=== PATIENT | female | born 1995 | race Caucasian/White ===

== ENCOUNTER 2016-05-12 19:30 | Emergency (ER) | payer SELFPAY ==
[2016-05-12] MEDS ORDERED: HYDROCODONE/ACETAMINOPHEN 5-325 MG TABLET PO ONE (22:51)
--- NOTE | 2016-05-12 22:54 | ER Document Report ---
ED Medical Screen (RME) - General Chief Complaint: Lower Abdominal Pain Stated Complaint: ABDOMINAL PAIN Mode of Arrival: Ambulatory Information source: Patient Notes: Patient is a 21-year-old female who presents to the ER today for 1 week of worsening abdominal, vaginal, anal pain only with intercourse. Patient states that it starts within 2 minutes of the start of intercourse. She denies any vaginal bleeding, vaginal discharge, fevers, chills. TRAVEL OUTSIDE OF THE [place] IN LAST 30 DAYS: No - Related Data Allergies/Adverse Reactions: No Known Allergies Allergy (Verified 05/12/16 22:51) Past Medical History - General Information source: Patient - Immunizations Immunizations up to date: Yes Hx Diphtheria, Pertussis, Tetanus Vaccination: Yes Review of Systems - Review of Systems Female Genitourinary: See HPI Physical Exam - Vital signs Vitals: Temp Pulse BP Pulse Ox 98.2 F 63 111/62 99 05/12/16 20:27 05/12/16 20:27 05/12/16 20:27 05/12/16 20:27 - Notes Notes: PHYSICAL EXAMINATION: GENERAL: Uncomfortable, but in no acute distress. LUNGS: CTAB and equal. No wheezes rales or rhonchi. HEART: Regular rate and rhythm without murmurs ABDOMEN: Soft, periumbilical, left lower quadrant, suprapubic tenderness. No guarding, no rebound Course - Vital Signs Vital signs: Temp Pulse Resp BP Pulse Ox 98.2 F 63 111/62 99 05/12/16 20:27 05/12/16 20:27 05/12/16 20:27 05/12/16 20:27
[2016-05-12 23:07] LABS: ABSOLUTE BASOPHILS # (AUTO) 0.1 10^3/uL (0.0-0.2); ABSOLUTE LYMPHOCYTES (AUTO) 2.5 10^3/uL (0.5-4.7); ABSOLUTE MONOCYTES (AUTO) 0.4 10^3/uL (0.1-1.4); ABSOLUTE NEUT (AUTO) 5.4 10^3/uL (1.7-8.2); BASOPHILS % (AUTO) 0.6 % (0-2); EOSINOPHILS % (AUTO) 0.6 % (0-6); HEMATOCRIT 39.8 % (36.0-47.0); HEMOGLOBIN 13.5 g/dL (12.0-15.5); HGB HCT DIFFERENCE 0.7; LYMPHOCYTES % (AUTO) 29.7 % (13-45); MEAN CORPUSCULAR HEMOGLOBIN 28.8 pg (27.0-33.4); MEAN CORPUSCULAR VOLUME 85 fl (80-97); MONOCYTES % (AUTO) 5.3 % (3-13); RED CELL DISTRIBUTION WIDTH 12.4 % (11.5-14.0); SEGMENTED NEUTROPHILS % (AUTO) 63.8 % (42-78); WHITE BLOOD COUNT 8.5 10^3/uL (4.0-10.5)
[2016-05-12 23:26] LABS: ALANINE AMINOTRANSFERASE 31 U/L (9-52); ALBUMIN 4.8 g/dL (3.5-5.0); ALKALINE PHOSPHATASE 76 U/L (38-126); ANION GAP 10 (5-19); ASPARTATE AMINO TRANSFERASE 20 U/L (14-36); BILIRUBIN,TOTAL 0.4 mg/dL (0.2-1.3); BLOOD UREA NITROGEN 10 mg/dL (7-20); CALCIUM 9.6 mg/dL (8.4-10.2); CARBON DIOXIDE 27 mmol/L (22-30); CHLORIDE 105 mmol/L (98-107); CREATININE RESULT 0.55 mg/dL (0.52-1.25); GLUCOSE 84 mg/dL (75-110); LIPASE 78.6 U/L (23-300); POTASSIUM 4.4 mmol/L (3.6-5.0); SODIUM 141.7 mmol/L (137-145); TOTAL PROTEIN 7.4 g/dL (6.3-8.2)
[2016-05-13 00:24] LABS: APPEARANCE,URINE CLEAR; BILIRUBIN,URINE NEGATIVE (NEGATIVE); GLUCOSE, URINE NEGATIVE (NEGATIVE); KETONES,URINE NEGATIVE (NEGATIVE); LEUKOCYTE ESTERASE,URINE NEGATIVE (NEGATIVE); NITRITE,URINE NEGATIVE (NEGATIVE); PROTEIN,URINE NEGATIVE (NEGATIVE); URINE SPECIFIC GRAVITY 1.013; UROBILINOGEN,URINE NEGATIVE mg/dL (<2.0)
[2016-05-13] MEDS ORDERED: HYDROCODONE/ACETAMINOPHEN 5-325 MG 6 TAB/DSPK PO PRN (03:12)
--- NOTE | 2016-05-13 03:12 | ER Document Report ---
ED GI/ - General Chief Complaint: Lower Abdominal Pain Stated Complaint: ABDOMINAL PAIN Mode of Arrival: Ambulatory Information source: Patient Notes: Patient is a 21-year-old female who presents to the ER today for 1 week of worsening abdominal, vaginal, anal pain only with intercourse. Patient states that it starts within 2 minutes of the start of intercourse. She denies any vaginal bleeding, vaginal discharge, fevers, chills. TRAVEL OUTSIDE OF THE [place] IN LAST 30 DAYS: No - Related Data Allergies/Adverse Reactions: No Known Allergies Allergy (Verified 05/12/16 22:51) Past Medical History - General Information source: Patient - Social History Smoking Status: Never Smoker Family History: None Patient has suicidal ideation: No Patient has homicidal ideation: No - Immunizations Immunizations up to date: Yes Hx Diphtheria, Pertussis, Tetanus Vaccination: Yes Review of Systems - Review of Systems Constitutional: No symptoms reported EENT: No symptoms reported Cardiovascular: No symptoms reported Respiratory: No symptoms reported Gastrointestinal: See HPI Genitourinary: No symptoms reported Female Genitourinary: See HPI Musculoskeletal: No symptoms reported Skin: No symptoms reported Hematologic/Lymphatic: No symptoms reported Neurological/Psychological: No symptoms reported Physical Exam - Vital signs Vitals: Temp Pulse BP Pulse Ox 98.2 F 63 111/62 99 05/12/16 20:27 05/12/16 20:27 05/12/16 20:27 05/12/16 20:27 - Notes Notes: PHYSICAL EXAMINATION: GENERAL: Appears uncomfortable, but in no acute distress. HEAD: Atraumatic, normocephalic. EYES: Pupils equal round and reactive to light, extraocular movements intact, sclera anicteric, conjunctiva are normal. NECK: Normal range of motion, supple without lymphadenopathy LUNGS: CTAB and equal. No wheezes rales or rhonchi. HEART: Regular rate and rhythm without murmurs ABDOMEN: Soft, periumbilical, suprapubic, left lower quadrant tenderness. No guarding, no rebound BACK: no vertebral tenderness, normal ROM GI/: no CVA tenderness EXTREMITIES: Normal range of motion, no pitting edema. No cyanosis. NEUROLOGICAL: Cranial nerves grossly intact. Normal sensory/motor exams. PSYCH: Normal mood, normal affect. SKIN: Warm, Dry, normal turgor, no rashes or lesions noted Course - Re-evaluation Re-evalutation: 05/13/16 03:07 Lab work is unremarkable today with a normal white blood cell count and negative test. Ultrasound transvaginal reports good blood flow to bilateral ovaries and no evidence of torsion, there are multiple cysts in both ovaries, no evidence for endometriosis or other abnormality. - Vital Signs Vital signs: Temp Pulse Resp BP Pulse Ox 98.2 F 63 111/62 99 05/12/16 20:27 05/12/16 20:27 05/12/16 20:27 05/12/16 20:27 - Laboratory Result Diagrams: 05/12/16 22:50 05/12/16 22:50 Laboratory results interpreted by me: 05/13/16 00:08 Urine Blood MODERATE H Discharge - Discharge Clinical Impression: Lower abdominal pain Ovarian cyst Qualifiers: Laterality: bilateral Qualified Code(s): N83.201 - Unspecified ovarian cyst, right side; N83.202 - Unspecified ovarian cyst, left side Condition: Stable Disposition: HOME, SELF-CARE Instructions: Oral Narcotic Medication ([facility]), Ovarian Cyst ([facility]) Additional Instructions: Return immediately for any new or worsening symptoms. Follow up with primary care provider, call tomorrow to make followup appointment. Prescriptions: Ibuprofen [Motrin 800 mg Tablet] 800 mg PO Q8H PRN #30 tab PRN Reason: Referrals: [facility] [Provider Group] - Follow up as needed
[2016-05-13 03:27] VITALS: BP 115/59
== END 2016-05-13 03:26 | disposition home or self-care (01) ==
LOC: ER 19:30
DX: N83.201 Unspecified ovarian cyst, right side (principal); N83.202 Unspecified ovarian cyst, left side; R10.30 Lower abdominal pain, unspecified
CPT/HCPCS: 36415; 76830; 80053; 81001; 83690; 84703; 85025; 93976; 99284

== ENCOUNTER 2016-07-09 07:53 | Emergency (ER) | payer SELFPAY ==
--- NOTE | 2016-07-09 09:09 | ER Document Report ---
ED Extremity Problem, Upper - General Chief Complaint: Shoulder Pain Stated Complaint: ARM PAIN Mode of Arrival: Ambulatory Information source: Patient Notes: 21 y/o F presents to ED c/o right shoulder pain. Pt reports pain began after she rolled in her bed this morning and states felt and heard her shoulder "pop" . Reports pain is worse with external rotation and abduction of shoulder. Denies numbness, tingling, color changes, swelling, chest pain, or sob. Reports has had pain to bilateral shoulders in the past but not as intense as todays episode. TRAVEL OUTSIDE OF THE [place] IN LAST 30 DAYS: No - HPI Patient complains to provider of: Right, Shoulder Onset: This morning Recent injury: Possibly Where: Home, Indoors Quality of pain: Achy Severity of pain: Mild Pain Level: 2 Associated symptoms: None Exacerbated by: Movement Relieved by: Positioning Similar symptoms previously: Yes Recently seen / treated by doctor: No - Related Data Allergies/Adverse Reactions: No Known Allergies Allergy (Verified 07/09/16 07:57) Past Medical History - General Information source: Patient - Social History Smoking Status: Never Smoker Chew tobacco use (# tins/day): No Frequency of alcohol use: None Drug Abuse: None Lives with: Family Family History: Reviewed & Not Pertinent Patient has suicidal ideation: No Patient has homicidal ideation: No - Medical History Medical History: Negative Renal/ Medical History: Denies: Hx Peritoneal Dialysis Surgical Hx: Negative - Immunizations Immunizations up to date: Yes Hx Diphtheria, Pertussis, Tetanus Vaccination: Yes Review of Systems - Review of Systems Constitutional: No symptoms reported EENT: No symptoms reported Cardiovascular: No symptoms reported Respiratory: No symptoms reported Gastrointestinal: No symptoms reported Genitourinary: No symptoms reported Female Genitourinary: No symptoms reported Musculoskeletal: See HPI Skin: No symptoms reported Hematologic/Lymphatic: No symptoms reported Neurological/Psychological: No symptoms reported -: Yes All other systems reviewed and negative Physical Exam - Vital signs Vitals: Temp Pulse Resp BP Pulse Ox 98.6 F 77 16 122/50 L 97 07/09/16 07:59 07/09/16 07:59 07/09/16 07:59 07/09/16 07:59 07/09/16 07:59 Interpretation: Normal - General General appearance: Appears well, Alert In distress: None - HEENT Head: Normocephalic, Atraumatic Eyes: Normal Pupils: PERRL - Respiratory Respiratory status: No respiratory distress Chest status: Nontender Breath sounds: Normal Chest palpation: Normal - Cardiovascular Rhythm: Regular Heart sounds: Normal auscultation Murmur: No Pulses: Normal: Radial Normal capillary refill: Yes - Abdominal Inspection: Normal Distension: No distension Bowel sounds: Normal Tenderness: Nontender Organomegaly: No organomegaly - Back Back: Normal, Nontender - Extremities General upper extremity: Normal inspection, Nontender, Normal color, Normal ROM , Normal strength, Normal temperature. No: Tender, Edema General lower extremity: Normal inspection, Nontender, Normal color, Normal ROM , Normal strength, Normal temperature, Normal weight bearing. No: Tender, Edema Shoulder: Tender - Patient complains of diffuse tenderness with palpation to right shoulder. No swelling, erythema, warmth, bruising, instability, deformity , or crepitus. Patient has full range of motion but complains of pain with external rotation and abduction. Distal neurovascular function intact., Limited ROM - Active due to pain. No: Deformity, Instability Arm: Normal, Nontender - Neurological Neuro grossly intact: Yes Cognition: Normal Orientation: AAOx4 Ángel Coma Scale Eye Opening: Spontaneous Ángel Coma Scale Verbal: Oriented Ángel Coma Scale Motor: Obeys Commands [place] Coma Scale Total: 15 Speech: Normal Motor strength normal: LUE, RUE, LLE, RLE Sensory: Normal - Psychological Associated symptoms: Normal affect, Normal mood - Skin Skin Temperature: Warm Skin Moisture: Dry Skin Color: Normal Course - Re-evaluation Re-evalutation: 07/09/16 09:51 Patient hemodynamically stable, in no distress, afebrile. X-ray of right shoulder unremarkable. Patient declined sling. No suggestion of emergent injury or inflammatory, infectious, or vascular etiology to symptoms. Patient appears stable for discharge and agrees with home care, follow-up with PCP, and ED return precautions. - Vital Signs Vital signs: Temp Pulse Resp BP Pulse Ox 98.1 F 75 16 120/45 L 100 07/09/16 10:14 07/09/16 10:14 07/09/16 10:14 07/09/16 10:14 07/09/16 10:14 - Diagnostic Test Radiology reviewed: Image reviewed, Reports reviewed Discharge - Discharge Clinical Impression: Right shoulder pain Qualifiers: Chronicity: acute Qualified Code(s): M25.511 - Pain in right shoulder Right shoulder strain Qualifiers: Encounter type: initial encounter Qualified Code(s): S46.911A - Strain of unspecified muscle, fascia and tendon at shoulder and upper arm level, right arm , initial encounter Condition: Stable Disposition: HOME, SELF-CARE Instructions: Exercise Program for the Shoulder ([facility]), Shoulder Injury ([facility]), Warm Packs ([facility]), Ice Packs ([facility]), Anti-Inflammatory Medication ([facility]) Additional Instructions: Follow-up with your primary care provider this week. Return to the emergency department for any worsening symptoms or concerns. Prescriptions: Naproxen [Naprosyn 375 Mg Tablet] 375 mg PO BIDP PRN #10 tablet PRN Reason: Referrals: RENNY MINAYA MD [Primary Care Provider] - Follow up tomorrow
[2016-07-09] MEDS ORDERED: IBUPROFEN 600 MG TABLET PO ONE (09:10)
[2016-07-09 10:17] VITALS: BP 120/45
== END 2016-07-09 10:17 | disposition home or self-care (01) ==
LOC: ER 07:53
DX: S46.911A Strain of unspecified muscle, fascia and tendon at shoulder and upper arm level, right arm, initial encounter (principal); M25.511 Pain in right shoulder; X58.XXXA Exposure to other specified factors, initial encounter; Y93.89 Activity, other specified; Y92.003 Bedroom of unspecified non-institutional (private) residence as the place of occurrence of the external cause
CPT/HCPCS: 99283

== ENCOUNTER 2016-08-14 15:14 | Emergency (ER) | payer SELFPAY ==
[2016-08-14] MEDS ORDERED: IBUPROFEN 600 MG TABLET PO ONE (15:51)
--- NOTE | 2016-08-14 15:51 | ER Document Report ---
HPI - HPI Patient complains to provider of: foreign body in the vagina Pain Level: 3 Context: Patient is a 21 FEMALE presents emergency Department complaining of vaginal discomfort. Patient states that on Wednesday she put in a tampon because she's had light spotting after her IUD was placed about 6 weeks ago. Patient states that she thought she took the tampon out but then last night was having abdominal cramps which are consistent since she's had her IUD placed and she went to check to make sure her strings were intact and she felt a string from the tampon which she then removed. Patient states that her abdominal cramps are consistent with her IUD did not change since she's been taking Motrin was which they resolve. She states that she now has vaginal discomfort after removal of the tampon. Patient states that she feels that she's been having low -grade fevers at home. So she was told by her mother to come get evaluated. She denies any other medical problems. Currently sexually active with her boyfriend not using protection. - REPRODUCTIVE Reproductive: DENIES: : - DERM Skin Color: Normal Past Medical History - Social History Smoking Status: Never Smoker Family History: Reviewed & Not Pertinent Patient has suicidal ideation: No Patient has homicidal ideation: No Renal/ Medical History: Denies: Hx Peritoneal Dialysis - Immunizations Immunizations up to date: Yes Hx Diphtheria, Pertussis, Tetanus Vaccination: Yes Vertical Provider Document - INFECTION CONTROL TRAVEL OUTSIDE OF THE [place] IN LAST 30 DAYS: No - RESPIRATORY Respiratory: Breath Sounds Normal, No Respiratory Distress, Chest Non-Tender. negative: Rales, Rhonchi, Wheezing O2 Sat by Pulse Oximetry: 98 - CARDIOVASCULAR Cardiovascular: Regular Rate, Regular Rhythm, No Murmur - GI/ABDOMEN Gastrointestinal: Abdomen Soft, Abdomen Non-Tender, No Organomegaly, Normal Bowel Sounds - REPRODUCTIVE Notes: FEMALE : Normal external exam. No evidence of lesions, lacerations, bruising or vesicles. Speculum exam normal cervix closed. Strength visualized and intact. No evidence of vaginal discharge with odor. No evidence of lesions. Minimal vaginal bleeding. Bimanual exam normal no cervical motion tenderness. No adnexal mass or adnexal tenderness. - NEURO Level of Consciousness: Awake, Alert, Appropriate Motor/Sensory: No Motor Deficit, No Sensory Deficit - DERM Integumentary: Warm, Dry, No Rash Course - Re-evaluation Re-evalutation: 08/14/16 20:48 Patient's presentation today is not consistent with any concern for toxic shock syndrome. Patient is hemodynamically stable, no acute distress and afebrile. No visible lesions or skin breakdown visible during pelvic exam. We'll initiate patient on Flagyl after discussion with supervising physician Dr. Cj Sow. Otherwise follow-up with [facility] as scheduled - Vital Signs Vital signs: Temp Pulse Resp BP Pulse Ox 98.8 F 85 16 116/75 98 08/14/16 15:20 08/14/16 15:20 08/14/16 15:20 08/14/16 15:20 08/14/16 15:20 Discharge - Discharge Clinical Impression: Vaginal pain Condition: Good Disposition: HOME, SELF-CARE Instructions: Metronidazole ([facility]) Prescriptions: Metronidazole [Flagyl Er] 750 mg PO DAILY #7 tablet.sa Referrals: SONG STEINBERG MD [ACTIVE STAFF] - Follow up as needed ()
[2016-08-14 17:16] VITALS: BP 120/68
[2016-08-14 17:57] LABS: CHLAM PCR NOT DETECTED (NOT DETECT)
== END 2016-08-14 17:14 | disposition home or self-care (01) ==
LOC: ER 15:14
DX: R10.2 Pelvic and perineal pain (principal); Z97.5 Presence of (intrauterine) contraceptive device
CPT/HCPCS: 87210; 87491; 87591; 99283

== ENCOUNTER 2017-05-19 12:05 | Emergency (ER) | payer SELFPAY ==
--- NOTE | 2017-05-19 13:28 | ER Document Report ---
ED Medical Screen (RME) - General Chief Complaint: Abdominal Pain Stated Complaint: ABDOMINAL PAIN Time Seen by Provider: 05/19/17 13:22 Mode of Arrival: Ambulatory Information source: Patient Notes: Pt has had RLQ abd pain that started 7am this morning, started around her belly button, has moved to RLQ. N/V and one episode of diarrhea. felt like she had fever. no abd vag d/c or dysuria. TRAVEL OUTSIDE OF THE [place] IN LAST 30 DAYS: No - Related Data Allergies/Adverse Reactions: No Known Allergies Allergy (Verified 08/14/16 15:19) Home Medications: Current Home Medications Norethindrone-E.estradiol-Iron [Lo Loestrin Fe 1-10 Tablet] 1 each PO DAILY 02/24 [History] Past Medical History - General Information source: Patient Renal/ Medical History: Denies: Hx Peritoneal Dialysis - Immunizations Immunizations up to date: Yes Hx Diphtheria, Pertussis, Tetanus Vaccination: Yes Review of Systems - Review of Systems Gastrointestinal: See HPI Physical Exam - Vital signs Vitals: Temp Pulse Resp BP Pulse Ox 98.6 F 91 16 127/76 H 96 05/19/17 12:24 05/19/17 12:24 05/19/17 12:24 05/19/17 12:24 05/19/17 12:24 - Notes Notes: General: crying, uncomfortable but NAD ABD: tender to RLQ only, no rebound or guarding, soft Course - Vital Signs Vital signs: Temp Pulse Resp BP Pulse Ox 98.6 F 91 16 127/76 H 96 05/19/17 12:24 05/19/17 12:24 05/19/17 12:24 05/19/17 12:24 05/19/17 12:24
[2017-05-19 14:13] LABS: ABSOLUTE LYMPHOCYTES (AUTO) 2.5 10^3/uL (0.5-4.7); ABSOLUTE MONOCYTES (AUTO) 0.4 10^3/uL (0.1-1.4); ABSOLUTE NEUT (AUTO) 3.9 10^3/uL (1.7-8.2); BASOPHILS % (AUTO) 0.6 % (0-2); EOSINOPHILS % (AUTO) 0.4 % (0-6); HEMATOCRIT 40.7 % (36.0-47.0); HEMOGLOBIN 13.9 g/dL (12.0-15.5); LYMPHOCYTES % (AUTO) 35.9 % (13-45); MEAN CORPUSCULAR HEMOGLOBIN 27.9 pg (27.0-33.4); MEAN CORPUSCULAR VOLUME 82 fl (80-97); MONOCYTES % (AUTO) 6.1 % (3-13); PLATELET COUNT 314 10^3/uL (150-450); RED BLOOD COUNT 4.96 10^6/uL (3.72-5.28); TOTAL CELLS COUNTED % (AUTO) 100 %; WHITE BLOOD COUNT 6.9 10^3/uL (4.0-10.5)
[2017-05-19 14:26] LABS: AMORPHOUS SEDIMENT,URINE 1+ /HPF; APPEARANCE,URINE TURBID; BILIRUBIN,URINE NEGATIVE (NEGATIVE); COLOR,URINE YELLOW; GLUCOSE, URINE NEGATIVE (NEGATIVE); KETONES,URINE NEGATIVE (NEGATIVE); LEUKOCYTE ESTERASE,URINE TRACE (NEGATIVE); NITRITE,URINE POSITIVE (NEGATIVE); PROTEIN,URINE NEGATIVE (NEGATIVE); UROBILINOGEN,URINE NEGATIVE mg/dL (<2.0)
[2017-05-19 14:31] LABS: ALANINE AMINOTRANSFERASE 22 U/L (9-52); ALBUMIN 4.7 g/dL (3.5-5.0); ALKALINE PHOSPHATASE 78 U/L (38-126); ANION GAP 12 (5-19); ASPARTATE AMINO TRANSFERASE 17 U/L (14-36); BILIRUBIN,DIRECT 0.2 mg/dL (0.0-0.4); BILIRUBIN,TOTAL 0.4 mg/dL (0.2-1.3); BLOOD UREA NITROGEN 11 mg/dL (7-20); CALCIUM 10.1 mg/dL (8.4-10.2); CARBON DIOXIDE 26 mmol/L (22-30); CHLORIDE 102 mmol/L (98-107); GLUCOSE 81 mg/dL (75-110); LIPASE 69.2 U/L (23-300); POTASSIUM 4.7 mmol/L (3.6-5.0); SODIUM 140.3 mmol/L (137-145); TOTAL PROTEIN 7.6 g/dL (6.3-8.2)
--- NOTE | 2017-05-19 15:15 | RADIOLOGY REPORT (SQ) ---
EXAM DESCRIPTION: CT ABD/PELVIS WITH IV ONLY COMPLETED DATE/TIME: 05/19/2017 2:54 pm REASON FOR STUDY: rlq pain/ n/v COMPARISON: None. TECHNIQUE: CT scan of the abdomen and pelvis performed using helical scanning technique with dynamic intravenous contrast injection. No oral contrast. Images reviewed with lung, soft tissue, and bone windows. Reconstructed coronal and sagittal MPR images reviewed. Delayed images for evaluation of the urinary system also acquired. All images stored on PACS. All CT scanners at this facility use dose modulation, iterative reconstruction, and/or weight based d osing when appropriate to reduce radiation dose to as low as reasonably achievable (ALARA). [facility]: Dose Right [facility]: CareDose [facility]: Dose Right [facility]: Teradose 4D [facility]: iFlipd CONTRAST TYPE AND DOSE: contrast/concentration: Isovue 370.00 mg/ml; Total Contrast Delivered: 79.0 ml; Total Saline Delivered: 68.1 ml RENAL FUNCTION: None required. The patient is less than 50 years old. RADIATION DOSE: CT Rad equipment meets quality standard of care and radiation dose reduction techniq ues were employed. CTDIvol: 8.2 - 11.1 mGy. DLP: 1047 mGy-cm.. LIMITATIONS: None. FINDINGS: LOWER CHEST: No significant findings. No nodules or infiltrates. LIVER: Normal size. No masses. No dilated ducts. SPLEEN: Normal size. No focal lesions. PANCREAS: No masses. No significant calcifications. No adjacent inflammation or peripancreatic fluid collections. Pancreatic duct not dilated. GALLBLADDER: No identified stones by CT criteria. No inflammatory changes to suggest cholecystitis. ADRENAL GLANDS: No significant masses or asymmetry. RIGHT KIDNEY AND URETER: No solid masses. No significant calcification. No hydronephrosis or hydroure ter. LEFT KIDNEY AND URETER: No solid masses. No significant calcification. No hydronephrosis or hydrouret er. AORTA AND VESSELS: No aneurysm. No dissection. Renal arteries, SMA, celiac without stenosis. RETROPERITONEUM: No retroperitoneal adenopathy, hemorrhage or masses. BOWEL AND PERITONEAL CAVITY: No masses or inflammatory changes. No free fluid or peritoneal masses. APPENDIX: Normal. PELVIS: No mass. No free fluid. Normal bladder. ABDOMINAL WALL: No masses. No hernias. BONES: No significant or acute findings. OTHER: No other significant finding. IMPRESSION: NO SIGNIFICANT OR ACUTE FINDING IN THE ABDOMEN OR PELVIS ON CT SCAN WITH IV CONTRAST. TECHNICAL DOCUMENTATION: JOB ID: [id number] Quality ID # [id number]: Final reports with documentation of one or more dose reduction techniques (e.g., Au tomated exposure control, adjustment of the mA and/or kV according to patient size, use of iterative reconstruction technique) 2010 [employer]- All Rights Reserved
--- NOTE | 2017-05-19 15:30 | ER Document Report ---
ED GI/ - General Chief Complaint: Abdominal Pain Stated Complaint: ABDOMINAL PAIN Time Seen by Provider: 05/19/17 13:22 Mode of Arrival: Ambulatory Information source: Patient Notes: Pt is a 22 year old female who presents to the ER today because she has had RLQ abd pain that started 7am this morning, started around her belly button and has moved to the RLQ. She admits to N/V and one episode of diarrhea. She states she felt like she had fever but has not taken her temperature. She denies abnormal vaginal d/c or dysuria. She admits to back pain, worse on the right. She is very concerned about appendicitis today as her brother had appendicitis and it was a "very scary" time for her. TRAVEL OUTSIDE OF THE [place] IN LAST 30 DAYS: No - Related Data Allergies/Adverse Reactions: No Known Allergies Allergy (Verified 08/14/16 15:19) Home Medications: Current Home Medications Norethindrone-E.estradiol-Iron [Lo Loestrin Fe 1-10 Tablet] 1 each PO DAILY 02/24 [History] Past Medical History - General Information source: Patient - Social History Smoking Status: Never Smoker Chew tobacco use (# tins/day): No Frequency of alcohol use: Occasional Drug Abuse: None Family History: Reviewed & Not Pertinent Patient has suicidal ideation: No Patient has homicidal ideation: No Renal/ Medical History: Denies: Hx Peritoneal Dialysis - Immunizations Immunizations up to date: Yes Hx Diphtheria, Pertussis, Tetanus Vaccination: Yes Review of Systems - Review of Systems Constitutional: See HPI EENT: No symptoms reported Cardiovascular: No symptoms reported Respiratory: No symptoms reported Gastrointestinal: See HPI Genitourinary: No symptoms reported Female Genitourinary: No symptoms reported Musculoskeletal: No symptoms reported Skin: No symptoms reported Hematologic/Lymphatic: No symptoms reported Neurological/Psychological: No symptoms reported Physical Exam - Vital signs Vitals: Temp Pulse Resp BP Pulse Ox 98.6 F 91 16 127/76 H 96 05/19/17 12:24 05/19/17 12:24 05/19/17 12:24 05/19/17 12:24 05/19/17 12:24 - Notes Notes: PHYSICAL EXAMINATION: GENERAL: uncomfortable appearing, tearful, but in no acute distress. HEAD: Atraumatic, normocephalic. EYES: Pupils equal round and reactive to light, extraocular movements intact, sclera anicteric, conjunctiva are normal. NECK: Normal range of motion, supple without lymphadenopathy LUNGS: CTAB and equal. No wheezes rales or rhonchi. HEART: regular rate and rhythm without murmurs ABDOMEN: Soft, RLQ and suprapubic tenderness. No guarding, no rebound BACK: no vertebral tenderness, normal ROM GI/: no CVA tenderness EXTREMITIES: Normal range of motion, no pitting edema. No cyanosis. NEUROLOGICAL:cranial nerves grossly intact, normal motor and sensory exam PSYCH: Normal mood, normal affect. SKIN: Warm, Dry, normal turgor, no rashes or lesions noted Course - Re-evaluation Re-evalutation: 05/20/17 19:41 Pt and her mother insisted on ruling out appendicitis today. I discussed risks of CT scan and they still wanted it today. CT abd negative for any acute pathology, appendix normal. Pt has nitrites on urinalysis. I will treat her with cipro as she also admits to low back pain. she has normal vital signs here. - Vital Signs Vital signs: Temp Pulse Resp BP Pulse Ox 98.3 F 68 18 113/68 98 05/19/17 15:35 05/19/17 15:35 05/19/17 15:35 05/19/17 15:35 05/19/17 15:35 - Laboratory Result Diagrams: 05/19/17 13:55 05/19/17 13:55 Laboratory results interpreted by me: 05/19/17 12:22 Urine Blood MODERATE H Urine Nitrite POSITIVE H Ur Leukocyte Esterase TRACE H Discharge - Discharge Clinical Impression: UTI (urinary tract infection) Qualifiers: Urinary tract infection type: site unspecified Hematuria presence: with hematuria Qualified Code(s): N39.0 - Urinary tract infection, site not specified Condition: Stable Disposition: HOME, SELF-CARE Additional Instructions: Please return to ER with any worsening symptoms. Prescriptions: Ciprofloxacin HCl [Cipro 500 mg Tablet] 500 mg PO BID #20 tablet Phenazopyridine HCl [Pyridium 100 Mg Tablet] 100 mg PO TID #15 tablet Forms: Return to Work
[2017-05-19 15:36] VITALS: BP 113/68
== END 2017-05-19 15:35 | disposition home or self-care (01) ==
LOC: ER 12:05
DX: N39.0 Urinary tract infection, site not specified (principal); R31.9 Hematuria, unspecified; R10.31 Right lower quadrant pain; M54.5 Low back pain; R11.2 Nausea with vomiting, unspecified; R19.7 Diarrhea, unspecified; Z83.79 Family history of other diseases of the digestive system
CPT/HCPCS: 36415; 74177; 80053; 81001; 81025; 83690; 85025; 99284

== ENCOUNTER 2018-07-27 00:02 | Emergency (ER) | payer BC ==
--- NOTE | 2018-07-27 01:40 | RADIOLOGY REPORT (SQ) ---
EXAM DESCRIPTION: XR FOOT 2 VIEWS BILATERAL COMPLETED DATE/TME: 07/27/2018 00:41 CLINICAL HISTORY: 23 years, Female, eval foreign body COMPARISON: None. NUMBER OF VIEWS: 4 TECHNIQUE: 2 views of each foot LIMITATIONS: None. FINDINGS: Right foot: Negative for fracture or dislocation. Joint spaces preserved. Soft tissues unremarkable. Left foot: Negative for fracture or dislocation. Soft tissues are unremarkable. Joint spaces are preserved IMPRESSION: Negative exam copyright 2010 [employer]- All Rights Reserved
--- NOTE | 2018-07-27 02:33 | ER Document Report ---
ED General - General Chief Complaint: Laceration Stated Complaint: FOOT LACERATION Time Seen by Provider: 07/27/18 00:39 Notes: Patient is a 23-year-old female without chronic medical problems, last tetanus immunization in 2016 who presents with lacerations to the insides of her bilateral lower feet. This occurred after she rubbed her foot on the loofah that contained glass. She notes lacerations on both sides with associated dull, throbbing, constant discomfort. She tried cleaning this at home but came to the emergency department due to the size of the cuts. Pain is worsened by walking. No history of similar injuries in the past. Does not believe there is any retained particles of glass. Has not seen her primary care physician regarding today's concerns. TRAVEL OUTSIDE OF THE [place] IN LAST 30 DAYS: No - Related Data Allergies/Adverse Reactions: No Known Allergies Allergy (Verified 07/27/18 00:03) Past Medical History - General Information source: Patient - Social History Smoking Status: Never Smoker Chew tobacco use (# tins/day): No Frequency of alcohol use: Occasional Drug Abuse: None Lives with: Spouse/Significant other Family History: Reviewed & Not Pertinent Patient has suicidal ideation: No Patient has homicidal ideation: No Pulmonary Medical History: Reports: Hx Asthma Renal/ Medical History: Denies: Hx Peritoneal Dialysis Past Surgical History: Reports: Hx Tonsillectomy - Immunizations Immunizations up to date: Yes Hx Diphtheria, Pertussis, Tetanus Vaccination: Yes Review of Systems - Review of Systems Notes: Constitutional: Negative for fever. Eyes: Negative for visual changes. ENT: Negative for facial injury Cardiovascular: Negative for chest injury. Respiratory: Negative for shortness of breath. Gastrointestinal: Negative for abdominal injury. Genitourinary: Negative for genital injury Musculoskeletal: Negative for back injury. Skin: Positive for laceration/abrasions. Neurological: Negative for head injury. Physical Exam - Vital signs Vitals: Temp Pulse Resp BP Pulse Ox 97.6 F 80 16 121/74 100 07/27/18 00:08 07/27/18 00:08 07/27/18 00:08 07/27/18 00:08 07/27/18 00:08 Interpretation: Normal Notes: PHYSICAL EXAMINATION: GENERAL: Well-appearing, well-nourished and in no acute distress. HEAD: Atraumatic, normocephalic. EYES: sclera anicteric, conjunctiva are normal. ENT: Moist mucous membranes. NECK: Normal range of motion LUNGS: Normal work of breathing HEART: 2+ radial pulses bilaterally EXTREMITIES: no pitting or edema. No cyanosis. NEUROLOGICAL: No focal neurological deficits. Moves all extremities spontaneously and on command. PSYCH: Normal mood, normal affect. SKIN: Warm, Dry, normal turgor, superficial lacerations to the bilateral inner lower feet, 5 cm superficial laceration on the left, 3 on the right. No evidence of retained foreign body. Course - Re-evaluation Re-evalutation: 07/27/18 02:32 Patient presents with superficial lacerations to the bilateral medial feet from a piece of glass. X-ray without any evidence of retained foreign body, tetanus up-to-date. Wounds are clean, irrigated and dressed. No repair given location and risk for infection. I have strongly reviewed the signs that would indicate infection in the high risk nature of foot wounds for infection with the patient and her significant other at the bedside. At this time will discharge with return precautions and follow-up recommendations. Verbal discharge instructions given a the bedside and opportunity for questions given. Medication warnings reviewed. Patient is in agreement with this plan and has verbalized understanding of return precautions and the need for primary care follow-up in the next 24-72 hours. - Vital Signs Vital signs: Temp Pulse Resp BP Pulse Ox 98.2 F 88 16 120/71 97 07/27/18 03:18 07/27/18 03:18 07/27/18 03:18 07/27/18 03:18 07/27/18 03:18 - Diagnostic Test Radiology reviewed: Image reviewed, Reports reviewed Radiology results interpreted by me: 07/27/18 02:33 Bilateral foot x-ray: No evidence of retained foreign body Discharge - Discharge Clinical Impression: Lacerations bilateral feet Foot laceration Qualifiers: Encounter type: sequela Laterality: unspecified laterality Qualified Code(s): S91.319S - Laceration without foreign body, unspecified foot, sequela Condition: Good Disposition: HOME, SELF-CARE Additional Instructions: Return immediately if you develop spreading redness around the wound, pus from the wound, worsening pain, or a fever of >100.4. Keep the area clean and dry. Wash gently with soap and water twice daily and cover with antibiotic ointment.
[2018-07-27 03:19] VITALS: BP 120/71
== END 2018-07-27 03:19 | disposition home or self-care (01) ==
LOC: ER 00:02
DX: S91.312A Laceration without foreign body, left foot, initial encounter (principal); S91.311A Laceration without foreign body, right foot, initial encounter; W25.XXXA Contact with sharp glass, initial encounter; Y93.E8 Activity, other personal hygiene; J45.909 Unspecified asthma, uncomplicated
CPT/HCPCS: 99283